=== PATIENT | male | born 1980 | race African-American/Black ===

== ENCOUNTER 2016-11-07 22:18 | Emergency (ER) | payer OTHER ==
[~2016-11-07] VITALS: Ht 170.2 cm; Wt 70.8 kg
[2016-11-07 22:24] VITALS: TEMP 37.2; Ht 170.2 cm; Wt 70.8 kg
[2016-11-07 22:30] VITALS: O2SAT 100
[2016-11-07] MEDS ORDERED: PRAV20TA PO (22:36)
[2016-11-07] MEDS ORDERED: CITA40TA4 PO (22:36)
[2016-11-07] MEDS ORDERED: BND25 PO (22:36)
[2016-11-07] MEDS ORDERED: ACET-1256 PO (22:36)
[2016-11-07] MEDS ORDERED: ASPI81TA28 PO (22:36)
--- NOTE | 2016-11-07 22:52 | EMERGENCY ROOM VISIT NOTE ---
History Report prepared by Dayanaibthuan: Anisha Alvarez Under the Supervision of: Dr. Maico Subramanian M.D. First contact with patient: 22:26 Chief Complaint: SEIZURE Stated Complaint: UNRESPONSIVE, POSSIBLE SEIZURE OR OVERDOSE Nursing Triage Summary: arrived via amb with als. pt was found unresponsive in his cell by staff at [facility]. pt alert and oriented upon medic arrival.pt alert and oriented at present denies any pain.states his whole family has seizures steta he does too but has been in [facility] for 5 years and does not take seizure meds.per staff at [facility] they were smoking k earlier History of Present Illness The patient is a 36 year old male who presents to the Emergency Room with complaints of a possible seizure. He was brought to the ED via ALS from [facility], where he resides and is accompanied by two corrections officers. EMS reports the patient was found unresponsive in his cell prior to arrival. The patient states he was sitting down watching TV and reading a magazine this evening when the episode occurred. The next thing he remembers is waking up with multiple people around him. He does not remember anything else but believes he did bite his tongue. He notes ever since he broke his jaw in 2006, he has experienced issues with biting his tongue intermittently. The patient does not know if he hit his head but denies any current headache. He is unsure of how long the episode lasted as it was unwitnessed. The patient admits to prior history of seizures but states he is not on daily medication because "I rarely have them". The last time he had a seizure was when he was approximately 7 years old. He denies any recent fevers, chills, cough or cold symptoms, nausea , vomiting, diarrhea or urinary symptoms. The patient also denies any prior head injuries, recent trauma, ETOH or illegal drug use. 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 A total of ten systems were reviewed and were otherwise negative. Past Medical & Surgical Medical Problems: (1) Hyperlipidemia (2) Seasonal allergies Family History Seizures Social History Smoking Status: Current Every Day Smoker Alcohol Use: none Drug Use: none Marital Status: single Housing Status: other ([employer]) Occupation Status: unemployed Current/Historical Medications Scheduled Aspirin (Aspirin Ec), 81 MG PO QPM Citalopram (Citalopram Hydrobromide), 20 MG PO HS Diphenhydramine Hcl (Benadryl), 200 MG PO HS Pravastatin (Pravachol ), 20 MG PO QPM Scheduled PRN Acetaminophen (Tylenol), 500 MG PO BID PRN for Pain Allergies Coded Allergies: No Known Allergies (Unverified , 11/07/16) Physical Exam Vital Signs Date Time Temp Pulse Resp B/P (MAP) Pulse Ox O2 Delivery O2 Flow Rate FiO2 11/08/16 00:42 98 18 127/83 99 Room Air 11/07/16 23:51 102 18 106/92 99 Room Air 11/07/16 22:58 102 18 118/74 97 Room Air 11/07/16 22:30 100 Room Air 11/07/16 22:24 107 11/07/16 22:24 37.2 108 18 130/78 100 Room Air Physical Exam GENERAL: Awake, alert, well-appearing, in no distress HENT: Normocephalic, atraumatic. Oropharynx unremarkable. Dry mucous membranes. EYES: Normal conjunctiva. Sclera non-icteric. NECK: Supple. No nuchal rigidity. FROM. No JVD. RESPIRATORY: Clear to auscultation. CARDIAC: Regular rate, normal rhythm. Extremities warm and well perfused. Pulses equal. ABDOMEN: Soft, non-distended. No tenderness to palpation. No rebound or guarding. No masses. RECTAL: Deferred. MUSCULOSKELETAL: Chest examination reveals no tenderness. The back is symmetrical on inspection without obvious abnormality. There is no CVA tenderness to palpation. No joint edema. LOWER EXTREMITIES: Calves are equal size bilaterally and non-tender. No edema. No discoloration. NEURO: Mild akathisia. Evidence of subacute tongue biting, but otherwise neurovascularly intact. No sensory or motor deficits noted. SKIN: No rash or jaundice noted. Medical Decision & Procedures ER Provider Diagnostic Interpretation: Radiology results as stated below per my review and radiologist interpretation: CT HEAD: No acute intracranial abnormality. No ICH, mass effect or edema. Visualized sinuses and mastoid air cells are clear. Radiologist: Boo Leigh MD Laboratory Results 11/07/16 22:30 Red Blood Count 4.37, Mean Corpuscular Volume 84.7, Mean Corpuscular Hemoglobin 29.5, Mean Corpuscular Hemoglobin Concent 34.9, Mean Platelet Volume 9.0, Neutrophils (%) (Auto) 69.7, Lymphocytes (%) (Auto) 19.2, Monocytes (%) (Auto) 9.2, Eosinophils (%) (Auto) 1.0, Basophils (%) (Auto) 0.4, Neutrophils # (Auto) 6.77, Lymphocytes # (Auto) 1.87, Monocytes # (Auto) 0.89, Eosinophils # (Auto) 0.10, Basophils # (Auto) 0.04 11/07/16 22:30 Test 11/07/16 22:30 11/07/16 22:58 White Blood Count 9.72 K/uL (4.8-10.8) Red Blood Count 4.37 M/uL (4.7-6.1) Hemoglobin 12.9 g/dL (14.0-18.0) Hematocrit 37.0 % (42-52) Mean Corpuscular Volume 84.7 fL (80-100) Mean Corpuscular Hemoglobin 29.5 pg (25-34) Mean Corpuscular Hemoglobin Concent 34.9 g/dl (32-36) Platelet Count 325 K/uL (130-400) Mean Platelet Volume 9.0 fL (7.4-10.4) Neutrophils (%) (Auto) 69.7 % Lymphocytes (%) (Auto) 19.2 % Monocytes (%) (Auto) 9.2 % Eosinophils (%) (Auto) 1.0 % Basophils (%) (Auto) 0.4 % Neutrophils # (Auto) 6.77 K/uL (1.4-6.5) Lymphocytes # (Auto) 1.87 K/uL (1.2-3.4) Monocytes # (Auto) 0.89 K/uL (0.11-0.59) Eosinophils # (Auto) 0.10 K/uL (0-0.5) Basophils # (Auto) 0.04 K/uL (0-0.2) RDW Standard Deviation 42.0 fL (36.4-46.3) RDW Coefficient of Variation 13.5 % (11.5-14.5) Immature Granulocyte % (Auto) 0.5 % Immature Granulocyte # (Auto) 0.05 K/uL (0.00-0.02) Anion Gap 7.0 mmol/L (3-11) Est Creatinine Clear Calc Drug Dose 85.1 ml/min Estimated GFR () 98.2 Estimated GFR (Non- 84.7 BUN/Creatinine Ratio 8.6 (10-20) Calcium Level 9.1 mg/dl (8.5-10.1) Phosphorus Level 2.3 mg/dl (2.5-4.9) Magnesium Level 2.0 mg/dl (1.8-2.4) Troponin I < 0.015 ng/ml (0-0.045) Chemistry Specimen Hemolysis Lactic Acid Level 1.0 mmol/L (0.4-2.0) Laboratory results reviewed by me Medications Administered Medications (Trade) Dose Ordered Sig/Bk Route Start Time Stop Time Status Last Admin Dose Admin Sodium Chloride 1,000 ml @ 999 mls/hr Q1H1M STAT IV 11/07/16 22:53 11/07/16 23:53 DC 11/07/16 22:53 999 MLS/HR Potassium/ Phosphorus/Sodium (Phospha 250 Neutral 155-852-130 Mg) 2 tab NOW STAT PO 11/08/16 00:18 11/08/16 00:20 DC 11/08/16 00:30 2 TAB ECG Indication: weakness (seizure like activity) Rate (beats per minute): 108 Rhythm: sinus tachycardia Findings: no acute ischemic change, other (normal intervals) Comparison ECG Date: no prior available ED Course 2244: The patient was evaluated in room C3. A complete history and physical exam was performed. 2253: NSS 1000 ml @ 999 mls/hr IV. 0018: Potassium/Phosphorus/Sodium 2 tab PO. 0020: I reevaluated the patient. He is resting comfortably and watching TV. I discussed his results and discharge instructions and he verbalized complete understanding and agreement. Medical Decision I reviewed the patient's past medical history, medications, and the nursing notes as described above. The differential diagnoses considered include seizure, orthostatic vasovagal syncope, stroke, ACS, PE and toxicology. Patient is a 36-year-old gentleman, currently incarcerated, reports a remote past medical history of seizure as a child but not on any AEDs 's emergency department from long term after the patient had an episode of loss of consciousness with question of seizure activity witnessed. On arrival patient is alert and oriented, no acute distress. Patient afebrile with stable vital signs. Exam the patient has a supple neck, neurologically intact. Patient does have mild malocclusion of his bite that is chronic from a remote jaw fracture. He does have appears to be evidence of tongue biting on the right lateral aspect of his tongue that appears old. The patient does report frequently biting his tongue when talking and poor eating. CT head unremarkable. CBC and lactate within normal limits. EKG and troponin negative. Considering negative workup in the setting of no convincing history of seizure disorder that required medications I do not believe this event was consistent with a seizure episode. Rather there was a report of the patient's smoking K, per triage note from EMS, which likely explains this event. Otherwise patient does appear mildly dry clinically and was given IV fluids. Patient will follow-up with his physician in long term for reevaluation. Patient was discharged per instructions. Medication Reconcilliation Current Medication List: was personally reviewed by me Blood Pressure Screening Patient's blood pressure: Normal blood pressure Blood pressure disposition: Did not require urgent referral Impression Primary Impression: Syncope Scribe Attestation The scribe's documentation has been prepared under my direction and personally reviewed by me in its entirety. I confirm that the note above accurately reflects all work, treatment, procedures, and medical decision making performed by me. Departure Information Dispostion Home / Self-Care Referrals [facility] (PCP) Patient Instructions Fainting (Syncope) - [facility], [facility] Additional Instructions Please follow up with your primary care physician in the next 1-3 days. Your exam, lab results, EKG, and CT scan did not show signs of an emergent condition at this time. Your white blood cells and lactate were within normal limits suggesting that this was unlikely to be a seizure. Return to the emergency department for worsening symptoms as described in the accompanying instructions.
[2016-11-07] MEDS ORDERED: SODIUM CHLORIDE 0.9% 1000ML 1,000 ML IV STA (22:53)
[2016-11-07 22:54] LABS: BASO % 0.4 %; BASO ABS # 0.04 K/uL (0-0.2); COMPLETE YES; IG% 0.5 %; LYMPH % 19.2 %; LYMPH ABS # 1.87 K/uL (1.2-3.4); MEAN CELL VOLUME 84.7 fL (80-100); MEAN CORPUSCULAR HEMOGLOBIN 29.5 pg (25-34); MEAN CORPUSCULAR HGB CONC 34.9 g/dl (32-36); MONO % 9.2 %; NEUT % 69.7 %; PLATELET COUNT 325 K/uL (130-400); RED BLOOD COUNT 4.37 M/uL (4.7-6.1); WHITE BLOOD COUNT 9.72 K/uL (4.8-10.8)
[2016-11-07 23:15] LABS: BLOOD UREA NITROGEN 10 mg/dl (7-18); BUN/CREATININE RATIO 8.6 (10-20); CALCIUM 9.1 mg/dl (8.5-10.1); CARBON DIOXIDE 28 mmol/L (21-32); CHLORIDE 96 mmol/L (98-107); GLUCOSE 84 mg/dl (70-99); POTASSIUM 3.8 mmol/L (3.5-5.1); SODIUM 131 mmol/L (136-145)
[2016-11-07 23:16] LABS: PHOSPHORUS 2.3 mg/dl (2.5-4.9)
[2016-11-08] MEDS ORDERED: POT PHOSPHATE MONOBASIC W/ SOD TAB PO STA (00:18)
[2016-11-08 00:42] VITALS: BP 127/83; PULSE 98; O2SAT 99
--- NOTE | 2016-11-08 07:14 | DIAGNOSTIC IMAGING REPORT ---
CT OF THE HEAD WITHOUT CONTRAST CLINICAL HISTORY: Syncope. COMPARISON STUDY: No previous studies for comparison. CT DOSE: 537.48 mGy.cm TECHNIQUE: Helical axial images of the head were obtained without IV contrast. Automated exposure control was utilized for the study. A dose lowering technique was utilized adhering to the principles of ALARA. FINDINGS: No acute intracranial hemorrhage, midline shift or mass effect is present. Ventricular system is normal. Basilar cisterns are patent. There are no extra-axial collections. Arellano-white differentiation is maintained. There are no findings to suggest acute dural sinus thrombosis or acute territorial infarct. There is no calvarial fracture. Visualized portions of the sinuses and mastoid air cells are clear. IMPRESSION: No acute intracranial findings. Electronically signed by: Moise Hair M.D. 11/08/2016 7:13 AM Dictated Date/Time: 11/08/2016 7:09 AM
== END 2016-11-08 00:51 | disposition home or self-care (01) ==
LOC: C.EDC 22:22
DX: R55 Syncope and collapse (principal); E78.5 Hyperlipidemia, unspecified; F17.200 Nicotine dependence, unspecified, uncomplicated; Z87.81 Personal history of (healed) traumatic fracture; Z79.82 Long term (current) use of aspirin; Z79.899 Other long term (current) drug therapy; Z82.0 Family history of epilepsy and other diseases of the nervous system

== ENCOUNTER → 2017-04-20 | Outpatient (CLI) | payer OTHER ==
[~2017-04-20] MED LIST: ACET-1256 PO; ASPI81TA28 PO; CITA40TA4 PO; DIPH25CA5 PO; PRAV20TA PO
--- NOTE | 2017-04-20 13:35 | DIAGNOSTIC IMAGING REPORT ---
L FINGER(S) MIN 2 VIEWS HISTORY: 37 years-old Male LEFT THUMB FX acute fracture of the left thumb COMPARISON: None available TECHNIQUE: 3 views of the left thumb FINDINGS: There is acute nondisplaced transverse fracture involving the proximal metaphyseal base of the first distal phalanx without definite intra-articular extension. The DIP joint appears intact. Mild associated soft tissue swelling without opaque foreign body. The remaining bony structures appear intact. IMPRESSION: Acute nondisplaced transverse fracture involves the proximal metaphyseal portion of the first distal phalanx with mild soft tissue swelling.. The above report was generated using voice recognition software. It may contain grammatical, syntax or spelling errors. Electronically signed by: Jae Bethea M.D. 04/20/2017 1:33 PM Dictated Date/Time: 04/20/2017 1:32 PM
== END | disposition home or self-care (01) ==
LOC: C.RDSM 10:45
PROVIDERS: ATTEND Family Medicine
DX: S62.522A Displaced fracture of distal phalanx of left thumb, initial encounter for closed fracture (principal); X58.XXXA Exposure to other specified factors, initial encounter